=== PATIENT | female | born 1975 | race American Indian/Alaskan Native ===

== ENCOUNTER 2020-08-20 10:41 | Emergency (ER) | payer MEDICAID ==
--- NOTE | 2020-08-20 11:12 | Emergency Department Report ---
ED Anxiety HPI - General Chief Complaint: Anxiety Stated Complaint: HYPERTENSION Time Seen by Provider: 08/20/20 10:59 Source: patient, EMS Mode of arrival: Ambulatory - History of Present Illness Initial Comments: pt is a 45 yo female who presents to the ED with c/o "panic attacks." she states she has had increased stress and lost her house. she states that her symptoms of a panic attack include racing heart, shaking of her hands, tingling of her hands, and breathing fast. she states her symptoms last for approximately 30 minutes and then she is able to calm herself down. she states that she has been having them more often recently. she states she has an appointment with a PCP in september 16. she denies any SI or HI. she states her symptoms are improving currently after she was brought in by EMS. she denies any CP, SOB, leg swelling, pleuritic CP, n/v/d, fever, cough. she endorses tobacco and marijuana use. she denies any ETOH use or other drug use. no PMHx. no allergies to meds. she has an IUD for control. - Related Data Home Medications: Previous Rx's Medication Instructions Recorded Last Taken Type hydrOXYzine HCL [Atarax] 25 mg PO Q8HR PRN #12 tablet 08/20/20 Unknown Rx Allergies/Adverse Reactions: Allergies Allergy/AdvReac Type Severity Reaction Status Date / Time No Known Allergies Allergy Verified 08/20/20 10:57 ED Review of Systems ROS: Stated complaint: HYPERTENSION Other details as noted in HPI Comment: All other systems reviewed and negative ED Past Medical Hx - Past Medical History Previous Medical History?: Yes Hx Hypertension: Yes Hx Psychiatric Treatment: Yes (anxiety) - Surgical History Past Surgical History?: No - Social History Smoking Status: Never Smoker - Medications Home Medications: Home Medications Medication Instructions Recorded Confirmed Last Taken Type hydrOXYzine HCL [Atarax] 25 mg PO Q8HR PRN #12 tablet 08/20/20 Unknown Rx ED Physical Exam - General Limitations: No Limitations General appearance: alert, in no apparent distress - Head Head exam: Present: atraumatic, normocephalic - Eye Eye exam: Present: normal appearance - ENT ENT exam: Present: mucous membranes moist - Respiratory Respiratory exam: Present: normal lung sounds bilaterally. Absent: respiratory distress, wheezes, rales, rhonchi, stridor, chest wall tenderness, accessory muscle use, decreased breath sounds, prolonged expiratory - Cardiovascular Cardiovascular Exam: Present: regular rate, normal rhythm, normal heart sounds. Absent: systolic murmur, diastolic murmur, rubs, gallop - Neurological Exam Neurological exam: Present: alert, oriented X3 - Psychiatric Psychiatric exam: Present: anxious. Absent: homicidal ideation, suicidal ideation - Skin Skin exam: Present: warm, dry, intact ED Course Vital Signs 08/20/20 08/20/20 10:55 12:48 Temperature 98.9 F Pulse Rate 110 H 98 H Respiratory 20 18 Rate Blood Pressure 147/103 Blood Pressure 150/92 [Left] O2 Sat by Pulse 99 99 Oximetry ED Medical Decision Making - Lab Data Vital Signs 08/20/20 08/20/20 10:55 12:48 Temperature 98.9 F Pulse Rate 110 H 98 H Respiratory 20 18 Rate Blood Pressure 147/103 Blood Pressure 150/92 [Left] O2 Sat by Pulse 99 99 Oximetry - Medical Decision Making pt is a 45 yo female who presents to the ED with c/o "panic attacks." she states she has had increased stress and lost her house. she states that her symptoms of a panic attack include racing heart, shaking of her hands, tingling of her hands, and breathing fast. she states her symptoms last for approximately 30 minutes and then she is able to calm herself down. she states that she has been having them more often recently. she states she has an appointment with a PCP in september 16. she denies any SI or HI. she states her symptoms are improving currently after she was brought in by EMS. she denies any CP, SOB, leg swelling, pleuritic CP, n/v/d, fever, cough. she endorses tobacco and marijuana use. she denies any ETOH use or other drug use. no PMHx. no allergies to meds. she has an IUD for control. Initial vitals with mild tachycardia which improved to normal upon repeat. Patient appears anxious on exam but otherwise no abnormality. She is not having any suicidal or homicidal ideations, she has no signs of acute psychosis, she does not meet inpatient psych criteria. Patient given multiple outpatient psych resources and giving a handout on psych resources in the [place] crisis line. Discussed very strict return precautions in detail with patient. Patient given Atarax in the emergency department and symptoms resolved and she was feeling much better and ready to go home. Patient given prescription for Atarax. Advised patient please take medication as prescribed as needed. medication may cause drowsiness do not drive or operate heavy machinery while taking. please use coping mechanisms such as breathing, meditating, watching videos and finding a way to calm yourself down. please follow up with a primary care doctor. please follow up with psychology/psychiatry. return to the emergency room for any new or worsening symptoms. Critical care attestation.: If time is entered above; I have spent that time in minutes in the direct care of this critically ill patient, excluding procedure time. ED Disposition Clinical Impression: Anxiety Disposition: DC-01 TO HOME OR SELFCARE Is pt being admited?: No Does the pt Need Aspirin: No Condition: Stable Instructions: Managing Anxiety, Adult Additional Instructions: please take medication as prescribed as needed. medication may cause drowsiness do not drive or operate heavy machinery while taking. please use coping mechanisms such as breathing, meditating, watching videos and finding a way to calm yourself down. please follow up with a primary care doctor. please follow up with psychology/psychiatry. return to the emergency room for any new or worsening symptoms. Prescriptions: hydrOXYzine HCL [Atarax] 25 mg PO Q8HR PRN #12 tablet PRN Reason: anxiety Referrals: PRIMARY CARE, [Primary Care Provider] - 2-3 Days [facility] [Outside] - 2-3 Days Time of Disposition: 12:22 Print Language: MALAY
[2020-08-20] MEDS ORDERED: hydrOXYzine HCL 25 MG TAB PO ONE (12:00)
[2020-08-20 12:50] VITALS: BP 150/92
== END 2020-08-20 12:51 | disposition home or self-care (01) ==
LOC: ED 10:41
DX: F41.9 Anxiety disorder, unspecified (principal); I10 Essential (primary) hypertension; Z79.899 Other long term (current) drug therapy